=== PATIENT | female | born 1945 | race Caucasian/White ===

== ENCOUNTER → 2016-05-18 | Outpatient (CLI) | payer MEDICARE, OTHER ==
[~2016-05-18] VITALS: Ht 154.9 cm; Wt 97.5 kg
[~2016-05-18] MED LIST: LIDOCAINE 2%/EPI 1:100,000 20 ML VIAL. IJ ONE
[2016-05-18 12:40] VITALS: BP 168/75
--- NOTE | 2016-05-19 16:07 | PATHOLOGY ---
PATHOLOGY REPORT * * * * * * * * FINAL DIAGNOSIS: Breast tissue, left breast mass needle biopsies: - DUCTAL CARCINOMA IN SITU, INTERMEDIATE GRADE, CRIBRIFORM AND SOLID TYPE. SEE COMMENT. COMMENT: Sections of the left breast mass needle biopsy reveal segments of breast tissue showing extensive involvement by intermediate grade ductal carcinoma in situ of cribriform and solid type. A few of the distended ducts show central comedo-type necrosis. There are a few associated calcifications. There is no evidence of invasive carcinoma. The case is also examined by Dr. Kwasi Rob, who concurs with the diagnosis. Breast prognostic studies will be obtained on block A1, the results of which will be reported separately. (JPM:; d/t: 05/19/16) REPORT ELECTRONICALLY SIGNED BY: Demarco Pittman M.D. DATE/TIME: 05/19/2016 16:06 * * * * * * * * GROSS PATHOLOGY: Received in formalin labeled "Kenia Rodriguez, left breast," are multiple needle cores of yellow-duncan fibrofatty tissue measuring 2.4 x 2.0 x 0.2 cm in aggregate dimensions. The tissue is submitted in its entirety in cassette A1 and A2. The cold ischemic time is 5 minutes. The total formalin fixation time is 8 hours and 36 minutes. (CAA; 05/18/2016) INITIAL CPT CODE(S): A; 66221, 72822(2) Professional services performed [place] [facility] [address] Technical services performed by [facility] at [address] [place] [address], [facility] [address], [place] [address]. SPECIMEN(S) RECEIVED: A.Left breast mass CLINICAL HISTORY: Left breast mass PATIENT: KENIA RODRIGUEZ /AGE: 1001/26/1945 (Age: 71) PATIENT #: [id number] ALT CASE #: SPECIMEN COLLECTION DATE: 05/18/2016 SPECIMEN RECEIVED DATE: 05/18/2016 [facility] - [address] [place] [address] - PHONE: [phone] * * * END OF REPORT * * *
== END | disposition home or self-care (01) ==
LOC: US 12:16
PROVIDERS: ATTEND Surgery
DX: N63 Unspecified lump in breast (principal)
CPT/HCPCS: 19081; 76942; C1713; G0206; 88305; 88361; 77065

== ENCOUNTER 2016-05-27 09:06 | Day surgery (SDC) | payer MEDICARE, OTHER ==
[~2016-05-27 09:06] MED LIST changes: +FENTANYL PF 100 MCG/2 ML VIAL. IV PRN; +HYDROMORPHONE 2 MG/ML VIAL. IV PRN; +IV RINGERS,LACTATED 1000ML 1,000 ML IV SCH; +LIDOCAINE 1% 1 ML SYRINGE. ID PRN; -LIDOCAINE 2%/EPI 1:100,000 20 ML VIAL. IJ ONE; +MORPHINE SULFATE 2 MG/ML DISP.SYRIN. IV PRN; +ONDANSETRON PF 4 MG/2 ML VIAL. IV PRN; +PROCHLORPERAZINE 10 MG/2 ML VIAL. IV PRN
[2016-05-27] MEDS ORDERED: PROPOFOL 20 ML IV ONE ×2 (10:02→13:02)
[2016-05-27] MEDS ORDERED: LIDOCAINE 2% 100 MG/5 ML DISP.SYRIN. ONE (10:03)
[2016-05-27] MEDS ORDERED: DEXAMETHASONE SOD PHOS 20 MG/5 ML VIAL. ONE (10:03)
[2016-05-27] MEDS ORDERED: FENTANYL PF 100 MCG/2 ML VIAL. ONE ×2 (10:03→13:15)
[2016-05-27] MEDS ORDERED: ONDANSETRON PF 4 MG/2 ML VIAL. ONE (10:03)
[2016-05-27] MEDS ORDERED: BUPIVAC MPF-EPI 0.5%-1:200000 30 ML VIAL. ONE (12:36)
[2016-05-27] MEDS ORDERED: PHENYLEPHRINE in 0.9% NACL PF 1 MG/10 ML DISP.SYRIN. IV ONE (12:54)
[2016-05-27] MEDS ORDERED: EPHEDRINE PF IN SALINE 50 MG/5 ML DISP.SYRIN. IV ONE (13:02)
[2016-05-27] MEDS ORDERED: SEVOFLURANE 31 TO 60 MINUTES. IH ONE (13:35)
--- NOTE | 2016-05-27 13:37 | PDOC ---
BRIEF OPERATIVE NOTE Pre-Op Diagnosis DCIS excision of left breast dcis dany freeman ebl 10 ivf 400 kellie well to rr stable. NANCY PAUL MD May 27, 2016 13:37
[2016-05-27] MEDS ORDERED: ALBUTEROL SULFATE 2.5 MG/3 ML NEBU. NEB ONE (14:00)
[2016-05-27] MEDS: FENTANYL PF 100 MCG/2 ML VIAL. IV PRN ×2 (14:01→14:21)
--- NOTE | 2016-05-27 14:20 | RAD ---
Dictation specimen radiograph. Specimen radiograph was performed. Residual microcalcifications are seen scattered throughout the biopsy specimen. Biopsy clip, placed during the biopsy procedure 05/18/2016 is also included in the specimen
[2016-05-27] MEDS ORDERED: HYDR-2666 PO (14:35)
[2016-05-27] MEDS ORDERED: HYDROCODONE/APAP 5/325MG TABLET. PO ONE (14:45)
--- NOTE | 2016-05-28 01:29 | OP ---
DATE OF SURGERY: 05/27/2016 PREOPERATIVE DIAGNOSIS: Left breast ductal carcinoma in situ. POSTOPERATIVE DIAGNOSIS: Left breast ductal carcinoma in situ. PROCEDURE: Excision of left breast DCIS. SURGEON: Nancy Paul M.D. ANESTHESIA: General. ESTIMATED BLOOD LOSS: 10 mL. IV FLUIDS: 400 mL. INDICATIONS: The patient is a pleasant 71-year-old female, who presents with a breast mass. Biopsy was undertaken, which showed the DCIS, therefore, she is here for excision of DCIS. FINDINGS: The specimen mammography confirmed that the calcifications and the biopsy markers were within the specimen. DESCRIPTION OF PROCEDURE: After informed consent was obtained, the patient was taken to the operating room and placed in the supine position. After adequate induction of general anesthesia, she was prepped and draped in the usual sterile fashion. The area of anticipated incision was injected with local anesthetic. A skin incision was made around the nipple-areolar complex bilaterally. This was extended through the subcutaneous tissue with cautery. The mass was seemingly fairly superficial. Dissection was then widened around the mass with cautery. The mass was then excised. It was sent for specimen mammogram, which revealed that the biopsy marker and microcalcifications were within the specimen. The specimen had been marked with a short stitch superficial, long stitch lateral, and a medium stitch inferiorly, closest to the inframammary fold. The dissection itself was quite superficial and extended underneath the nipple-areolar complex to the nipple, and given the proximity of the mass to the skin of the breast and the nipple-areolar complex anteriorly, an additional anterior margin was taken. This meant that the dissection was such that the breast tissue was taken off of the nipple-areolar complex leaving behind the dermis within the nipple-areolar complex, as well as the tissue laterally was taken just beneath the dermis of the skin laterally, and in an attempt to minimize the chance of having a positive margin anteriorly, this anterior additional margin was taken. The wound was irrigated - it was hemostatic and was then closed in layers. The dermal-subdermal layer was closed with a 3-0 Vicryl in a running fashion, and skin was closed with 4-0 Monocryl in subcuticular fashion. Sterile dressings were placed. She tolerated the procedure well. There were no apparent complications. She was then transferred in stable condition to the recovery room. NANCY PAUL MD DR: MIRLANDE/federica JOB#: [id number] / [id number] [facility] [place] [facility] CENTERDayan
== END 2016-05-27 15:53 | disposition home or self-care (01) ==
LOC: SURG 09:06
PROVIDERS: ATTEND Surgery
DX: D05.12 Intraductal carcinoma in situ of left breast (principal); E66.9 Obesity, unspecified; Z90.710 Acquired absence of both cervix and uterus; Z90.49 Acquired absence of other specified parts of digestive tract; Z98.41 Cataract extraction status, right eye
CPT/HCPCS: 19301; 76098; 94640; J0780; J1100; J1956; J2370; J2405; J2704; J3010; J3490

== ENCOUNTER 2016-06-10 06:36 | Day surgery (SDC) | payer MEDICARE, OTHER ==
[~2016-06-10] VITALS: Ht 154.9 cm; Wt 97.1 kg
[~2016-06-10 06:36] MED LIST changes: -FENTANYL PF 100 MCG/2 ML VIAL. IV PRN; +HYDR-2666 PO; -HYDROMORPHONE 2 MG/ML VIAL. IV PRN; -IV RINGERS,LACTATED 1000ML 1,000 ML IV SCH; -LIDOCAINE 1% 1 ML SYRINGE. ID PRN; -MORPHINE SULFATE 2 MG/ML DISP.SYRIN. IV PRN; -ONDANSETRON PF 4 MG/2 ML VIAL. IV PRN; -PROCHLORPERAZINE 10 MG/2 ML VIAL. IV PRN
[2016-06-10] MEDS ORDERED: HYDROMORPHONE 2 MG/ML VIAL. IV PRN (07:00)
[2016-06-10] MEDS ORDERED: LIDOCAINE 1% 1 ML SYRINGE. ID PRN (07:00)
[2016-06-10] MEDS ORDERED: ONDANSETRON PF 4 MG/2 ML VIAL. IV PRN (07:00)
[2016-06-10] MEDS ORDERED: FENTANYL PF 100 MCG/2 ML VIAL. IV PRN ×2 (07:00)
[2016-06-10] MEDS ORDERED: PROCHLORPERAZINE 10 MG/2 ML VIAL. IV PRN (07:00)
[2016-06-10] MEDS ORDERED: IV RINGERS,LACTATED 1000ML 1,000 ML IV SCH (07:00)
[2016-06-10] MEDS ORDERED: BUPIVAC MPF-EPI 0.5%-1:200000 30 ML VIAL. ONE (07:40)
[2016-06-10] MEDS ORDERED: DESFLURANE 61 TO 120 MINUTES IH ONE (07:46)
[2016-06-10] MEDS ORDERED: MIDAZOLAM HCL 2 MG/2 ML VIAL. ONE ×2 (07:48→07:49)
[2016-06-10] MEDS ORDERED: DEXAMETHASONE SOD PHOS 20 MG/5 ML VIAL. ONE (07:49)
[2016-06-10] MEDS ORDERED: LIDOCAINE 2% 100 MG/5 ML DISP.SYRIN. ONE (07:49)
[2016-06-10] MEDS ORDERED: PROPOFOL 20 ML IV ONE ×2 (07:49→08:50)
[2016-06-10] MEDS ORDERED: FENTANYL PF 100 MCG/2 ML VIAL. ONE ×2 (07:49→08:50)
[2016-06-10] MEDS ORDERED: ONDANSETRON PF 4 MG/2 ML VIAL. ONE (07:49)
[2016-06-10] MEDS ORDERED: EPHEDRINE PF IN SALINE 50 MG/5 ML DISP.SYRIN. IV ONE (08:40)
[2016-06-10] MEDS ORDERED: NEOSTIGMINE METHYLSULFATE 5 MG/5 ML SYRINGE. ONE (08:47)
[2016-06-10] MEDS: MORPHINE SULFATE 2 MG/ML DISP.SYRIN. IV PRN ×2 (09:56→10:09)
--- NOTE | 2016-06-10 09:57 | PDOC ---
BRIEF OPERATIVE NOTE Pre-Op Diagnosis left dcis reexcision left dcis k haja sanford ebl 25 ivf 1300 kellie well to rr stable #[id number] NANCY PAUL MD Jun 10, 2016 09:57
[2016-06-10] MEDS ORDERED: HYDROCODONE/APAP 5/325MG TABLET. PO ONE (10:15)
[2016-06-10 12:12] VITALS: BP 123/63
--- NOTE | 2016-06-10 13:49 | OP ---
DATE OF SURGERY: 06/10/2016 PREOPERATIVE DIAGNOSIS: Left breast ductal carcinoma in situ. POSTOPERATIVE DIAGNOSIS: Left breast ductal carcinoma in situ. PROCEDURE: Reexcision of left breast DCIS. SURGEON: Nancy Paul M.D. ANESTHESIA: General. ESTIMATED BLOOD LOSS: 25 mL. IV FLUIDS: 1300 mL. INDICATIONS: The patient is a 71-year-old female who underwent excision of left breast DCIS. She has a positive lateral margin and then the interior margin of the primary specimen was negative, but due to the conditions intraoperatively additional anterior margin was taken and this demonstrated DCIS. This anterior margin was just under the nipple areolar complex. She is here today for reexcision. FINDINGS: She did have several millimeters thickness of tissue that was able to be excised from the dermis of the nipple areolar complex and therefore the nipple areolar complex itself was spared and the entire biopsy cavity was excised with generous margin circumferentially. It was marked with a short stitch superficial just under the nipple areolar complex. A medium stitch was used to hold the biopsy cavity close and this stitch would have been at the lateral margin of the left areolar, where the areolar joint skin and then the long stitch was lateral. The pathologist was asked to come to the room and I showed him how I oriented the specimen as well. DESCRIPTION OF PROCEDURE: After informed consent was obtained, the patient was taken to the operating room and placed in supine position. After adequate induction of general anesthesia, she was prepped and draped in usual sterile fashion. Her previous skin incision was opened with a scalpel and it has enlarged slightly and then the thickness of the tissue underlying the nipple areolar complex was examined and it seems reasonable to excise this closer to the dermis of the nipple areolar complex ____ interrupted instead the resecting and nipple areolar complex. Therefore, dissection was then began at the lateral margin of the areolar and extended across the entire areolar right at the level of the dermis with cautery. The dissection was then widened circumferentially in all directions until the entire biopsy cavity was excised as one specimen. The specimen was marked as stated. The breast was irrigated and hemostasis was obtained. The wound was then closed in layers. The deep layer was closed with a 3-0 Vicryl in a running fashion. Skin was closed with 4-0 Monocryl in subcuticular fashion. Sterile dressings were placed. She tolerated the procedure well. There were no apparent complications. She was then transferred in stable condition to the recovery room. NANCY PAUL MD DR: MIRLANDE/federica JOB#: [id number] / [id number] SANJIV Magaña MD
--- NOTE | 2016-06-11 00:11 | ACF ---
Admission Forms Criteria AMBULATORY SURGERY EXCEPTION CRITERIA Ambulatory Surgery Exception Criteria ( Place 'X' for any and all applicable criteria): Surgery or procedure performed on ambulatory basis may require inpatient stay for[A] ANY ONE of the following(1)(2)(3)(4)(5)(6)(7)(8)(9): [X] I. A preoperative situation, condition, or finding that warrants inpatient stay as indicated by ANY ONE of the following: [] a) Inpatient care needed because of severity of a disease or condition rather than the surgery (eg, severe cardiac or respiratory disease, severe infection) (15) (16 ) (17) (18) [] b) Emergent procedure (eg, angioplasty for acute ischemia)(19) [X] c) Complex surgical approach or situation as indicated by ANY ONE of the following(3): [X] i) Open approach needed instead of usual endoscopic, transcatheter, or other less invasive procedure [] ii) Difficult approach because of previous operation [] iii) Airway monitoring required after open neck procedures(20)(21 ) [] iv) Large mass requiring unusually extensive dissection [] v) Additional complicating feature requiring inpatient care (eg , drain management)(22(23): [] d) Major surgery in a pt with high anesthetic risk as indicated by ANY ONE of the following (2)(3)(5)(7)(8): [] i) ASA risk class III or higher (severe systemic disease impairing function) [D] [] ii) Advanced age (eg, older than 85 years)(14)(24) [] iii) Symptomatic heart failure(25) [] iv) Symptomatic asthma or COPD(8)(21) [] v) Morbid obesity with hemodynamic or respiratory problems(20)( 21)(26)(27) [] vi) Obstructive sleep apnea(20)(21) [] vii) Former premature infants who are younger than 60 weeks [] viii) High risk for severe postoperative abnormalities (eg, severe postoperative hypocalcemia after parathyroidectomy for severe hyperparathyroidism)(27)( 28) [] ix) Unstable angina(25) [] e) Drug-related risk requiring inpatient stay as indicated by ANY ONE of the following(5)(10)(14)(32)(33) [] i) Procedure requires discontinuing drugs or other therapy (eg , antiarrhythmic medication, antiseizure medication), which necessitates inpatient observation or treatment.(18)(31) [] ii) Major surgery and high risk drug use as indicated by ANY ONE of the following: [] 1) Active abuse of cocaine or similar drug [] 2) Monoamine oxidase inhibitor use [] 3) Other drug identified as posing risk [] f) Inadequate outpatient care situation as indicated by ANY ONE of the following(5)(10)(14)(32)(33) [] i) Patient lives remote from medical facility and procedure has urgent complication potential, and temporary nearby residence cannot be arranged [] ii) Patient will have postprocedure incapacitation and inadequate assistance at home, or alternative level of care cannot be arranged. [] iii) Patient will have long general anesthesia or procedure side effect resolution time, and competent person to stay with patient on first postoperative night at home or alternative level of care cannot be arranged. [] iv) Other inadequate outpatient situation that cannot be handled by other means [] II. A perioperative event, condition, or finding that warrants inpatient stay as indicated by ANY ONE of the following (1)(2)(3): [] a) Inadequate physiologic recovery: cardiovascular, respiratory, or hemodynamic status not normal or near preoperative baseline(18) [] b) Hemodynamic instability [] c) Patient not alert with near normal or baseline mental status [] d) Temperature not normal or as expected and not appropriate for outpatient treatment of condition [] e) Ambulatory or appropriate activity level status not yet achieved post procedure [E](34)(35)(36) [] f) Operative site not appropriate (eg, unexpected or excessive drainage or bleeding) [] g) Postoperative effects not resolved or adequately managed (eg, significant pain or vomiting not appropriate for outpatient or next level of care)(10)(12) [] h) Complicating features requiring inpatient care as indicated by ANY ONE of the following(37): [] i) Severe complications of procedure (eg, bowel injury, airway compromise, vascular injury,severe hemorrhage) [] ii) Extensive (eg, dissection far beyond usual scope of procedure ) or prolonged (eg, 120 minutes beyond usual) surgery needed requiring inpatient postoperative care [] iii) Conversion to an open or complex procedure that requires inpatient care (eg, open vs laparoscopic cholecystectomy, abdominal vs vaginal hysterectomy)(38) [] iv) Comorbid condition or test result identified during or post procedure that requires inpatient care (7) [] v) Malignant hyperthermia(30) [] vi) Other complicating feature requiring inpatient care(22)(23) Inpatient stay may be needed until ALL of the following are present (1)(2)(3)(4) (5)(6)(10)(14)(33)(40): []a) Physiologic recovery: cardiovascular, respiratory, and hemodynamic status normal or near preoperative baseline []b) Hemodynamic stability []c) Patient alert, with near normal or baseline mental status []d) Temperature appropriate: patient afebrile or temperature appropriate for outpt treatment of condition []e) Activity level appropriate: ambulatory or appropriate activity level post procedure []f) Operative site appropriate as indicated by ALL of the following: []i) Site dry or with expected drainage []ii) Any blood noted is as expected for procedure. []g) Postoperative effects resolved or managed as indicated by ALL of the following: []i) Pain management appropriate for outpatient (or next level of) care(10) []ii) Minimal nausea and vomiting: if present, successfully treated with oral medication(12) []iii) Headache, dizziness, or drowsiness (if present) are mild. []h) Voiding status acceptable as indicated by ANY ONE of the following: []i) Voiding spontaneously []ii) No voiding but instructions given for follow-up in 6 to 8 hours []iii) Urinary catheter in place, and instructions given for follow-up []i) Complicating features requiring inpatient care manageable at a lower level of care(37) []j) Comorbid conditions manageable at a lower level of care(37) The original [employer] content created by [employer] has been revised. The portions of the content which have been revised are identified through the use of italic text or in bold, and [employer] has neither reviewed nor approved the modified material. All other unmodified content is copyright [employer]. Please see references footnoted in the original [employer] edition 2016 Admission Criteria Met?: Yes LUIS E MACKENZIE Jun 11, 2016 00:11
--- NOTE | 2016-06-15 13:30 | PATHOLOGY ---
PATHOLOGY REPORT * * * * * * * * FINAL DIAGNOSIS: Breast tissue, left breast segmental mastectomy: - FOCAL RESIDUAL DUCTAL CARCINOMA IN-SITU, INTERMEDIATE GRADE, CRIBRIFORM AND SOLID TYPE, IS IDENTIFIED WITHIN ANTERIOR WALL OF PREVIOUS BIOPSY SITE. - DCIS IS APPROXIMATELY 1 MM FROM THE CLOSEST INKED ANTERIOR SUBAREOLAR MARGIN OF RESECTION. - Remaining margins negative for DCIS. - Previous biopsy site showing focal coagulative necrosis, fat necrosis, acute and chronic inflammation with eosinophils, fibrosis, and focal foreign body giant cell reaction. - Proliferative fibrocystic changes with florid ductal epithelial hyperplasia and small intraductal papilloma. (JPM:csd; d/t: 06/12/2016) REPORT ELECTRONICALLY SIGNED BY: Demarco Pittman M.D. DATE/TIME: 06/15/2016 13:29 * * * * * * * * GROSS PATHOLOGY: The specimen is received in formalin labeled "Kenia Rodriguez, left breast tissue". Received is a 286 g segment of yellow-boyce lobulated tissue oriented with a short suture designating the superficial/anterior margin, a long suture designating the lateral margin, and a medium suture designating the lateral edge of the nipple areolar complex. There is an additional suture present which is holding the previous biopsy cavity closed. Between the short and medium sutures, the tissue has a light brown and granular appearance, measuring 4.5 x 2.2 cm. This area is designated as the margin directly below the nipple areola complex. The specimen measures 13.5 cm from superior to inferior, 9.1 cm from medial to lateral, and 5.8 cm from superficial/anterior to deep/posterior. The specimen is inked as follows: Superior-blue, inferior-green, lateral-red, medial-yellow, superficial/anterior-black, deep/posterior-orange. Sectioning reveals a previous biopsy cavity measuring 8.9 x 6.8 x 3.0 cm. This cavity opens to the superficial/anterior margin, 0.5 cm from the deep/posterior margin, 1.5 cm from the superior margin, 2.0 cm from the inferior margin, 0.7 cm from the lateral margin, and 0.7 cm from the medial margin. There is a focus of white-boyce fibrous tissue between the previous biopsy cavity and the superficial/anterior margin measuring approximately 1.5 x 1.1 x 0.6 cm, which is 0.5 cm from the superficial/anterior and medial margins. There is a second focus of white-boyce fibrous tissue which is located along the deep/posterior aspect of the previous biopsy cavity measuring 1.0 x 1.0 x 0.7 cm, which is 1.0 cm from the deep/posterior margin. The remainder the specimen is comprised of yellow-boyce lobulated tissue. Residual tumor is not grossly distinct. The specimen is submitted representatively as follows: A1-A5 entire light brown granular area directly below nipple areola complex A6 most superior margin A7 most inferior margin A8 hostess party sales representative section showing relationship of previous biopsy cavity to posterior and medial margins A9 hostess party sales representative section showing relationship of previous biopsy cavity to lateral margin A10-A14 entire primary focus of fibrous tissue between previous biopsy cavity and superficial/anterior margin A15-A18 entire secondary focus of fibrous tissue between previous biopsy cavity and deep/posterior margin. The cold ischemic time is 13 minutes. The total formalin fixation time is 36 hours and 26 minutes. (CAA; 06/11/2016) INITIAL CPT CODE(S): A; 13342 Professional services performed by [facility] [place] [address] Technical services performed by [facility] at [address] [place] [address] [address], [place] [address]. SPECIMEN(S) RECEIVED: A.Left breast tissue CLINICAL HISTORY: Left breast carcinoma in situ nipple and areola PATIENT: KENIA RODRIGUEZ /AGE: 1001/26/1945 (Age: 71) PATIENT #: [id number] ALT CASE #: SPECIMEN COLLECTION DATE: 06/10/2016 SPECIMEN RECEIVED DATE: 06/10/2016 [facility] - [address] [place] [address] - PHONE: [phone] * * * END OF REPORT * * *
== END 2016-06-10 12:30 | disposition home or self-care (01) ==
LOC: SURG 06:36
PROVIDERS: ATTEND Surgery
DX: C50.012 Malignant neoplasm of nipple and areola, left female breast (principal); D05.12 Intraductal carcinoma in situ of left breast; K82.9 Disease of gallbladder, unspecified; Z90.49 Acquired absence of other specified parts of digestive tract; E66.9 Obesity, unspecified; Z90.710 Acquired absence of both cervix and uterus
CPT/HCPCS: 19301; C1769; J0780; J1100; J1956; J2250; J2270; J2405; J2704; J2710; J3010; J3490

== ENCOUNTER → 2016-08-31 | Outpatient (CLI) | payer MEDICARE, OTHER ==
[~2016-08-31] MED LIST changes: +ASPI-482 PO; +CYAN10005 PO; +GABA-586 PO; +LEVO112T4 PO; +POTA10TA12 PO; +PRAV20TA2 PO; +TAMO20TA PO; +TRIA1TAB5 PO; +VENTOLIN HFA18 GM INH
--- NOTE | 2016-08-31 11:35 | RAD ---
Indication lumpectomy 2 months previously. Swelling. Targeted ultrasound was performed. Examination was targeted to the retroareolar area of the left breast. There is a complex, multiseptated, predominantly cystic mass in the subareolar position of the left breast. It measures approximately 8 x 6.3 x 3 cm. It would be compatible with a complex cyst,, multiseptated hematoma or conceivably abscess. IMPRESSION: Complex, multiseptated, 8 cm subareolar mass left breast. Sterility uncertain.
== END | disposition home or self-care (01) ==
LOC: US 10:13
PROVIDERS: ATTEND Radiology Radiation Oncology
DX: N63 Unspecified lump in breast (principal); Z85.3 Personal history of malignant neoplasm of breast
CPT/HCPCS: 76641; 99211

== ENCOUNTER 2016-09-04 10:28 | Day surgery (SDC) | payer MEDICARE, OTHER ==
[~2016-09-04] VITALS: Ht 154.9 cm; Wt 97.1 kg
[~2016-09-04 10:28] MED LIST changes: +CLINDAMYCIN 600MG PREMIX 50 ML IV PRN; -HYDR-2666 PO; +HYDR-2758 PO; +HYDROmorphone 2 MG/ML VIAL IV PRN; +LIDOCAINE 1% 1 ML SYRINGE. ID PRN; +ONDANSETRON PF 4 MG/2 ML VIAL. IV PRN; +PROCHLORPERAZINE 10 MG/2 ML VIAL. IV PRN; +fentaNYL PF VIAL 100 MCG/2 ML VIAL IV PRN
[2016-09-04] MEDS: IV RINGERS,LACTATED 1000ML 1,000 ML IV SCH ×2 (11:08→11:10)
[2016-09-04] MEDS ORDERED: fentaNYL PF VIAL 100 MCG/2 ML VIAL ONE (11:54)
[2016-09-04] MEDS ORDERED: ROCURONIUM 50 MG/5 ML VIAL. ONE (11:54)
[2016-09-04] MEDS ORDERED: MIDAZOLAM HCL/PF 2 MG/2 ML VIAL. ONE (11:54)
[2016-09-04] MEDS ORDERED: FAMOTIDINE 20 MG/2 ML VIAL ONE (11:56)
[2016-09-04] MEDS ORDERED: ONDANSETRON PF 4 MG/2 ML VIAL. ONE (11:56)
[2016-09-04] MEDS ORDERED: PROPOFOL 20 ML IV ONE (11:56)
[2016-09-04] MEDS ORDERED: DEXAMETHASONE SOD PHOS 20 MG/5 ML VIAL. ONE (11:56)
[2016-09-04] MEDS ORDERED: LIDOCAINE 2% PF Vial for OR 5 ML VIAL. ONE (11:56)
[2016-09-04] MEDS ORDERED: HYDR-971 PO (13:02)
[2016-09-04] MEDS ORDERED: BUPIVAC MPF-EPI 0.5%-1:200000 30 ML VIAL. ONE (13:22)
[2016-09-04] MEDS ORDERED: NEOSTIGMINE METHYLSULFATE 5 MG/5 ML SYRINGE. ONE (14:07)
[2016-09-04] MEDS ORDERED: GLYCOPYRROLATE 1 MG/5 ML VIAL. ONE (14:07)
[2016-09-04] MEDS ORDERED: SEVOFLURANE 61 TO 120 MINUTES. IH ONE (14:14)
--- NOTE | 2016-09-04 14:19 | PDOC ---
BRIEF OPERATIVE NOTE Pre-Op Diagnosis #[id number] left breast seroma left breast excision seroma/NAC (left partial mastectomy) gen ebl 25 ivf 700 kellie well to rr stable. NANCY PAUL MD Sep 04, 2016 14:19
[2016-09-04] MEDS ORDERED: HYDROcodone/APAP 5/325MG 1 TAB TABLET PO ONE (14:45)
[2016-09-04] MEDS: fentaNYL PF VIAL 100 MCG/2 ML VIAL IV PRN ×2 (14:57→15:20)
[2016-09-04] MEDS: MORPHINE SULFATE 2 MG/ML DISP.SYRIN. IV PRN ×2 (15:02→15:49)
[2016-09-04 16:45] VITALS: BP 141/67
--- NOTE | 2016-09-07 10:00 | OP ---
DATE OF SURGERY: 09/04/2016 PREOPERATIVE DIAGNOSIS: Left breast seroma. POSTOPERATIVE DIAGNOSIS: Left breast seroma. PROCEDURE: Excision of left breast seroma, nipple areolar complex (left partial mastectomy). SURGEON: Nancy Paul M.D. ANESTHESIA: General. ESTIMATED BLOOD LOSS: 25 mL. IV FLUIDS: 700 mL. INDICATIONS: The patient is a 71-year-old female who is status post left breast excision DCIS and status post radiation postoperatively for DCIS. She has had a seroma that has been draining for weeks and has not improving. Ultrasound revealed a multiseptated 8 x 6 seroma that was not amenable to percutaneous drainage. She is here today for excision of the seroma cavity, excision of the nipple areolar complex, and to hopefully alleviate her seroma cavity definitively. DESCRIPTION OF PROCEDURE: After informed consent was obtained, the patient was taken to the operating room and placed in supine position. After adequate induction of general anesthesia, she was prepped and draped in usual sterile fashion. An elliptical incision was made around the nipple areolar complex extended through the dermis with cautery. The dermis was thickened likely because of postoperative changes. The seroma cavity was encountered. It was drained. It was multiseptated, it was large. The seroma cavity itself was excised with cautery and the specimen was marked with the long stitch lateral. It was sent to Pathology for examination. She had some larger vessels that were oversewn to control bleeding during the resection. At this point, the area was made hemostatic with cautery as well, suture ligation. The partial mastectomy site was hemostatic. A drain was then placed and brought out through a separate stab wound in the left lateral breast, sutured to the skin with a 2-0 Prolene suture. The cavity was irrigated. It was hemostatic. The wound was closed in layers and subdermal layer was closed with a 3-0 Vicryl in a running fashion. Skin was closed with 4-0 Monocryl in subcuticular fashion. Sterile dressings were placed, which consisted of skin effects followed by Steri-Strips and a small drained sponge. She tolerated the procedure well. There were no apparent complications. She is in the process of being transferred in stable condition to the recovery room. NANCY PAUL MD DR: MIRLANDE/federica JOB#: [id number] / [id number] [facility] [place] VINAY MD ROBINOW, JAY MD TAYLOR, GILDARDO [facility]ITALDayan
--- NOTE | 2016-09-07 18:14 | PATHOLOGY ---
PATHOLOGY REPORT * * * * * * * * FINAL DIAGNOSIS: Skin and breast tissue, left breast seroma and nipple areolar complex excision: - Seroma of previous lumpectomy site with organizing fibrin and focal squamous metaplasia of seroma lining, and with wall of lumpectomy site showing reactive fibrosis, fat necrosis, acute and chronic inflammation, and foreign body giant cell reaction. - No residual ductal carcinoma in situ identified. - Inked margins of resection negative for DCIS. - Focal mild duct ectasia and fibrosis of breast tissue surrounding lumpectomy site. (JPM:mml; d/t: 09/07/2016) REPORT ELECTRONICALLY SIGNED BY: Demarco Pittman M.D. DATE/TIME: 09/07/2016 18:13 * * * * * * * * GROSS PATHOLOGY: The specimen is received in formalin labeled "Kenia Rodriguez, seroma and nipple and areola complex left breast, long stitch lateral". Received is a 71 g segment of yellow-boyce fibroadipose tissue with attached skin measuring 7.8 cm from medial to lateral, 5.9 cm from superior to inferior, and 5.5 cm from anterior to posterior. The attached skin measures 4.3 x 3.9 cm. The specimen is inked as follows: Superior-blue, inferior-green, lateral-red, medial-yellow, anterior-black, posterior-orange. The anterior aspect of the specimen opened into a previous biopsy cavity measuring 6.5 x 5.5 x 4.1 cm. The lining of the cavity is pink-boyce in appearance with a moderate amount of possible adhesions present. Masses or lesions are not grossly identified. The specimen is submitted representatively as follows: A1 medical collections representative section of skin A2 medical collections representative sections of previous biopsy cavity and adjacent medial margin A3-A4 medical collections representative sections of previous biopsy cavity and adjacent superior margin A5 medical collections representative section of previous biopsy cavity and adjacent lateral margin A6 medical collections representative sections of previous biopsy cavity and adjacent posterior margin A7 medical collections representative section of previous biopsy cavity and adjacent inferior margin A8 medical collections representative sections of previous biopsy cavity and adjacent anterior margin. The cold ischemic time and time in formalin are not provided. The time out of formalin is 9:50 PM on 09/06/2016. (CAA; 09/06/2016) INITIAL CPT CODE(S): A; 03203 Professional services performed by [facility] at [address] [address] Technical services performed by [facility] at [address] [place] [address], [address], [place] [address]. SPECIMEN(S) RECEIVED: A.Left breast seroma and nipple areolar complex CLINICAL HISTORY: Seroma of breast PATIENT: KENIA RODRIGUEZ /AGE: 1001/26/1945 (Age: 71) PATIENT #: [id number] ALT CASE #: SPECIMEN COLLECTION DATE: 09/04/2016 SPECIMEN RECEIVED DATE: 09/04/2016 [facility] - [address] [place] [address] - PHONE: [phone] * * * END OF REPORT * * *
== END 2016-09-04 17:07 | disposition home or self-care (01) ==
LOC: SURG 10:28
PROVIDERS: ATTEND Surgery
DX: L76.34 Postprocedural seroma of skin and subcutaneous tissue following other procedure (principal); Y83.8 Other surgical procedures as the cause of abnormal reaction of the patient, or of later complication, without mention of misadventure at the time of the procedure; Z98.41 Cataract extraction status, right eye; Z90.49 Acquired absence of other specified parts of digestive tract; E66.9 Obesity, unspecified; Z90.710 Acquired absence of both cervix and uterus; Z85.3 Personal history of malignant neoplasm of breast; Z88.0 Allergy status to penicillin; Z88.2 Allergy status to sulfonamides; Z91.048 Other nonmedicinal substance allergy status
CPT/HCPCS: 21501; J1100; J2250; J2270; J2405; J2704; J2710; J3010; J3490; S0028; 88307

== ENCOUNTER → 2016-12-11 | Outpatient (CLI) | payer MEDICARE, OTHER ==
[~2016-12-11] MED LIST changes: -CLINDAMYCIN 600MG PREMIX 50 ML IV PRN; +HYDR-971 PO; -HYDROmorphone 2 MG/ML VIAL IV PRN; -LIDOCAINE 1% 1 ML SYRINGE. ID PRN; -ONDANSETRON PF 4 MG/2 ML VIAL. IV PRN; -PROCHLORPERAZINE 10 MG/2 ML VIAL. IV PRN; -fentaNYL PF VIAL 100 MCG/2 ML VIAL IV PRN
--- NOTE | 2016-12-11 12:47 | RAD ---
DATE: 12/11/2016 EXAM: DIGITAL DIAGNOSTIC LT HISTORY: Follow-up. History of DCIS. History of lumpectomy and radiation therapy. COMPARISON: Note is made of the screening examination 05/04/2016. This study was interpreted with the benefit of Computerized Aided Detection (CAD). FINDINGS: Breast Density: SCATTERED The breast parenchyma shows scattered fibroglandular densities. Breast parenchyma level B. Post therapeutic changes are noted in the left breast. There is no evidence of tumor recurrence. Lymph node is noted in the left axilla similar to the study 05/04/2016. IMPRESSION: Benign findings. BI-RADS CATEGORY: 2 BENIGN FINDING(S) RECOMMENDED FOLLOW-UP: 6M 6 MONTH FOLLOW-UP PQRS compliance statement: Patient information was entered into a reminder system with a target due date April, for the next mammogram. Mammography is a sensitive method for finding small breast cancers, but it does not detect them all and is not a substitute for careful clinical examination. A negative mammogram does not negate a clinically suspicious finding and should not result in delay in biopsying a clinically suspicious abnormality. "Our facility is accredited by the [employer] Mammography Program."
== END | disposition home or self-care (01) ==
LOC: MAMMO 12:16
PROVIDERS: ATTEND Surgery
DX: D05.12 Intraductal carcinoma in situ of left breast (principal)
CPT/HCPCS: G0206; 77065

== ENCOUNTER → 2017-05-14 | Outpatient (CLI) | payer MEDICARE, OTHER | END | disposition home or self-care (01) | LOC: MAMMO 12:37 | DX: C50.912 Malignant neoplasm of unspecified site of left female breast (principal); Z92.3 Personal history of irradiation | CPT/HCPCS: 77066 ==

== ENCOUNTER → 2017-11-25 | Outpatient (CLI) | payer MEDICARE, OTHER ==
[2017-11-26] MEDS: REGADENOSON 0.4 MG/5 ML DISP.SYRIN. IV ONE (09:15)
--- NOTE | 2017-11-26 11:50 | RAD ---
MR#: [id number] Date of Study: 11/26/2017 Ordering Physician: JARON CHOW, Referring Physician: ALFA CHRISTINA Tech: KRYSTIAN Vasques, ARRT (R) (N) APPROVED REPORT Test Type: Pharmacological Stress Nurse/Tech: Sana Block RN Test Indications: Dyspnea on exertion Cardiac History: Hypertension,asthma,, High cholesterol Medications: See Electronic Medical Record Medical History: See Electronic Medical Record Resting ECG: SR with BBB Resting Heart Rate: 85 bpm Resting Blood Pressure: 140/71mmHg Pretest Chest Pain: None Nurse/Tech Notes S1,S2. Left lower lobe sounds diminished. Consent: The procedure was explained to the patient in lay terms. Informed consent was witnessed. Matt eout was entered into [employer]. History and Stress Test performed by RT Loan (R) (N) Pharm. Details Pharmacologic stress testing was performed using 0.4mg per 5ml of regadenoson given intravenously ove r 7-10 seconds. Stress Symptoms Headache, hot flash sensation POST EXERCISE Reason for Termination: Infusion complete Target HR: No Max HR: 97 bpm Max Blood Pressure: 128/60mmHg Blood Pressure response to exercise: Abnormal blood pressure response during stress. Heart Rate response to exercise: WNL Chest Pain: No. Arrhythmia: No. ST Change: No. INTERPRETATION Stress EKG Conclusion: Baseline EKG showed sinus rhythm. No ischemic changes at peak stress. No arr hythmias. Imaging Protocol IMAGE PROTOCOL: Rest Tc-99m/stress Tc-99m 2 days Rest: Stress: Viability: Radiopharm.Tc99m WzlfvlduhHu12x Sestamibi Ocqo69gWj 33.4mCi Img Date 11/25/2017 11/26/2017 Inj-Img Fgvi33sfg. 60min. Rest Admin Site:IV - Right HandAdministrator:KRYSTIAN Vasques, ARRT (R)(N) Stress Admin Site: IV - Right HandAdministrator: KRYSTIAN Vasques ARRT (R)(N) STRESS DATA End Diast. Vol.52.0mlAv. Heart Rate95.0bpm LVEDV index BSA26.0mlCardiac Output0.0L/min End Syst. Vol.9.0mlCO Index BSA0.0L/min LVESV index BSA5.0mlMyocardial Mass95.0g Eject. Rmcwdgmp00.0% Stress Scores Regional WT1.00Summed WT5.00 Regional WM0.00Summed WM0.00 LV Perfusion Scintigraphic images did not show any significant perfusion defects but there was transient ischemic dilation 1.45 suggestive of balanced ischemia. Wall Motion Normal left ventricle systolic function with ejection fraction calculated at 76%. LV Perf. Quant 17 Seg. SSS0.00 17 Seg. SRS0.00 17 Seg. SDS0.00 Stress Defect Extent (% LAD)0.00Rest Defect Extent (% LAD)0.00Rev. Defect Extent (% LAD)0.00 Stress Defect Extent (% LCX) 0.00Rest Defect Extent (% LCX)0.00Rev. Defect Extent (% LCX)0.00 Stress Defect Extent (% RCA)0.00Rest Defect Extent (% RCA)0.00Rev. Defect Extent (% RCA)0.00 Stress Defect Extent (% RANDA)0.00Rest Defect Extent (% RANDA)0.00Rev. Defect Extent (% RANDA)0.00 Conclusion 1. Regadenoson cardioisotope stress test did not show any significant fixed or reversible perfusion d efects but there was transient ischemic dilatation suggestive of balanced ischemia. 2. Normal left ventricular systolic function with ejection fraction calculated at 76%. 3. Consider cardiac catheterization if clinical suspicion high. Signed by : Jaron Chow, Electronically Approved : 11/26/2017 11:49:37
--- NOTE | 2017-11-26 12:02 | CARD ---
MR#: [id number] Date of Study: 11/26/2017 Ordering Physician: JARON CHOW, Referring Physician: JARON CHOW Tech: Silvia Jose RDCS APPROVED REPORT EXAM: Two-dimensional and M-mode echocardiogram with Doppler and color Doppler. Other Information Quality : Fair INDICATION Dyspnea 2D DIMENSIONS RVDd2.0 (2.9-3.5cm)Left Atrium(2D)2.8 (1.6-4.0cm) IVSd1.3 (0.7-1.1cm)Aortic Root(2D)3.3 (2.0-3.7cm) LVDd3.1 (3.9-5.9cm)LVOT Diameter2.0 (1.8-2.4cm) PWd1.0 (0.7-1.1cm)LVDs2.4 (2.5-4.0cm) FS (%) 27.0 %SV17.4 ml LVEF(%)55.0 (>50%) Aortic Valve AoV Peak Jonatan.165.3cm/sAoV VTI27.4cm AO Peak GR.10.9mmHgLVOT Peak Jonatan.142.2cm/s AO Mean GR.7mmHgAVA (VMAX)2.71cm2 FRANCO (VTI)3.57hs8YY P 1/2 Zqvf046yd Mitral Valve MV E Gsqbnpeb66.5cm/sMV DECEL HECF858jz MV A Pqqestdf123.0cm/sE/A Ratio0.6 Pulmonary Vein S1 Shlyyzsp77.9cm/sD2 Ohsyhoed09.4cm/s LEFT VENTRICLE The left ventricle is normal size. There is mild asymmetric posterior wall hypertrophy. Left ventricl e systolic function is normal. The Ejection Fraction is 55-60%. There is normal LV segmental wall mot ion. Transmitral Doppler flow pattern is Grade I-abnormal relaxation pattern. RIGHT VENTRICLE The right ventricle is normal size. The right ventricular systolic function is normal. ATRIA The left atrium size is normal. The right atrium size is normal. The interatrial septum is intact wit h no evidence for an atrial septal defect or patent foramen ovale as noted on 2-D or Doppler imaging. AORTIC VALVE The aortic valve is not well visualized. Doppler and Color Flow revealed mild aortic regurgitation. T here is no significant aortic valvular stenosis. MITRAL VALVE The mitral valve is calcified but opens well. There is no evidence of mitral valve prolapse. There is no mitral valve stenosis. Doppler and Color Flow revealed no mitral valve regurgitation noted. TRICUSPID VALVE The tricuspid valve is normal in structure and function. Doppler and Color Flow revealed no tricuspid valve regurgitation noted. There is no tricuspid valve stenosis. PULMONIC VALVE The pulmonic valve is not well visualized. Doppler and Color Flow revealed no pulmonic valvular regur gitation. There is no pulmonic valvular stenosis. GREAT VESSELS The aortic root is normal in size. The ascending aorta is mildly dilated at 3.5 cm. The IVC was not v isualized. PERICARDIAL EFFUSION There is no evidence of significant pericardial effusion. Critical Notification Critical Value: No <Conclusion> Left ventricle systolic function is normal. The Ejection Fraction is 55-60%. There is normal LV segmental wall motion. Transmitral Doppler flow pattern is Grade I-abnormal relaxation pattern. Doppler and Color Flow revealed mild aortic regurgitation. There is no evidence of significant pericardial effusion. Signed by : Jaron Chow, Electronically Approved : 11/26/2017 12:01:43
== END | disposition home or self-care (01) ==
LOC: NM 16:17
PROVIDERS: ATTEND Internal Medicine Cardiovascular Disease
DX: I35.1 Nonrheumatic aortic (valve) insufficiency (principal); E66.9 Obesity, unspecified; Z85.3 Personal history of malignant neoplasm of breast; Z92.3 Personal history of irradiation; Z90.49 Acquired absence of other specified parts of digestive tract; Z90.710 Acquired absence of both cervix and uterus; Z88.2 Allergy status to sulfonamides; Z88.0 Allergy status to penicillin
CPT/HCPCS: 78452; 96374; 96375; A9500; 93017; 93306; 96376; J2785

== ENCOUNTER 2017-12-10 08:14 | Outpatient (CLI) | payer MEDICARE, OTHER ==
[~2017-12-10] VITALS: Ht 152.4 cm; Wt 101.6 kg
[2017-12-10] VITALS (10 sets, daily range): BP systolic 140–176; BP diastolic 64–94
[~2017-12-10 08:14] MED LIST changes: +IODIXANOL 320 MG/ML 100 ML VIAL. ONE; +LIDOCAINE 1% PF 2 ML VIAL. ONE
[2017-12-10 08:46] LABS: CALCIUM 9.3 mg/dL (8.5-10.1); CREATININE 1.2 mg/dL (0.6-1.0); GFR 44.3; POTASSIUM 3.5 mmol/L (3.5-5.1)
[2017-12-10 08:50] LABS: HEMATOCRIT 39.6 % (36.0-47.0); HEMOGLOBIN 14.1 g/dL (12.0-15.5); RED BLOOD COUNT 3.98 x10^6/uL (3.50-5.40); RED CELL DISTRIBUTION WIDTH 13.1 % (11.5-14.5); WHITE BLOOD COUNT 7.4 x10^3/uL (4.0-11.0)
[2017-12-10 09:03] LABS: PROTHROMBIN TIME PATIENT 12.9 SEC (11.7-14.0)
--- NOTE | 2017-12-10 09:35 | PDOC ---
MODERATE SEDATION ASSESSMENT RISKS/ALTERNATIVES Risks/Alternatives Risks and alternatives of this type of sedation and procedure discussed with: RISK/ALTERNATIVES: Patient H & P ON CHART H & P H & P on chart and reviewed for co-morbid conditions and appropriate labs. H&P ON CHART: Yes STATUS PREG STATUS ASSESSED: N/A MEDS/ALLERGIES REVIEWED Meds/Allergies Reviewed Medications and Allergies including time and route of recently administered narcotics and sedatives. MEDS/ALLERGIES REVIEWED: Yes ASA RATING ASA RATING: II AIRWAY ASSESSMENT Airway Assessment Airway patency, oral function limitations, presence of caps, crowns, dentures, partials, and ability to extend neck assessed. AIRWAY ASSESSMENT: Yes MALLAMPATI SCORE MALLAMPATI SCORE: II PRE-SEDATION ASSESSMENT PRE-SEDATION ASSESSMENT: Yes JARON CHOW MD Dec 10, 2017 09:35
[2017-12-10] MEDS ORDERED: HEPARIN for IV BOLUS 10,000 UNIT/10 ML VIAL. ONE (09:45)
[2017-12-10] MEDS ORDERED: VERAPAMIL 5 MG/2 ML VIAL. ONE (09:45)
[2017-12-10] MEDS ORDERED: MIDAZOLAM HCL/PF 5 MG/5 ML VIAL. ONE (09:45)
[2017-12-10] MEDS ORDERED: NITROGLYCERIN 200 MCG/2 ML SYRINGE FOR CATH/VASC LAB. ONE (09:45)
[2017-12-10] MEDS ORDERED: fentaNYL PF VIAL 100 MCG/2 ML VIAL ONE (09:45)
[2017-12-10] MEDS ORDERED: CONTRAST GIVEN. MC PRN (10:15)
[2017-12-10] MEDS: IODIXANOL 320 MG/ML 100 ML VIAL. IART ONE (10:29)
[2017-12-10] MEDS: NITROGLYCERIN 200 MCG/2 ML SYRINGE FOR CATH/VASC LAB. IART ONE (10:29)
[2017-12-10] MEDS: LIDOCAINE 1% PF 2 ML VIAL. INJ ONE (10:29)
[2017-12-10] MEDS ORDERED: IV 1/2 NORMAL SALINE 1,000 ML IV SCH (10:30)
[2017-12-10] MEDS: MIDAZOLAM HCL/PF 5 MG/5 ML VIAL. IV ONE (10:30)
[2017-12-10] MEDS: VERAPAMIL 5 MG/2 ML VIAL. IART ONE (10:30)
[2017-12-10] MEDS: fentaNYL PF VIAL 100 MCG/2 ML VIAL IV ONE (10:32)
[2017-12-10] MEDS: HEPARIN for IV BOLUS 10,000 UNIT/10 ML VIAL. IV ONE (10:33)
[2017-12-10] MEDS: HEPARIN for IV BOLUS 10,000 UNIT/10 ML VIAL. IART ONE (10:33)
--- NOTE | 2017-12-10 10:51 | CARD ---
MR#: [id number] Date of Study: 12/10/2017 Ordering Physician: JARON JIANG, Referring Physician: JARON JIANG Tech: RT Silke (R) APPROVED REPORT Technologist: RT Silke (R) Nurse: Julia Edgar R.N. Procedure(s) performed: 1. Left heart catheterization, selective coronary angiography and left ventr iculography via right transradial approach 2. Instant wave free ratio (IFR) measurement of right coronary artery stenosis Moderate sedation: 40 MINUTES INDICATION The indication(s) include : Dyspnea on exertion and positive stress test. PROCEDURE NARRATIVE After explaining the risks, benefits and alternative options, informed consent was obtained from ellie ent. Patient was brought to the cardiac Salad Chef and right wrist was prepped and draped in the usual fashion after confirming a positive modified John's test. Arterial access was obtained in the [facility] radial artery and a 6 Luxembourger sheath was inserted. 6 Luxembourger Norris catheter was used to perform marvin ective angiography of the left and right coronary arteries. The same catheter was used to perform lef t ventriculography. Since patient was found to have angiographically borderline significant lesion in volving her right coronary artery, a decision was made to perform physiologic assessment using Instan t wave free ratio (IFR). The stenosis in the midsegment was crossed with [place] Verrata PressureWir e and IFR measurement was made that was found to be insignificant at 1.0. Patient tolerated the proce dure well. Hemostasis was achieved using TR band. There were no immediate complications. The follo wing findings were noted. FINDINGS 1. Hemodynamics: Left ventricular end-diastolic pressure of 7 mmHg. No pullback gradient across the aortic valve. 2. Left ventriculography: Normal left ventricle systolic function with ejection fraction estimated at 65%. No significant mitral regurgitation seen. 3. Coronary angiography: a. The left main coronary artery arose from the left sinus of Valsalva, gave rise to the left anteri or descending and left circumflex arteries and did not show any significant stenosis. b. The left anterior descending artery showed 30% stenosis in the proximal segment and 40-50% stenos is in the midsegment. c. The left circumflex artery did not show any significant stenosis. d. The right coronary artery was a large and dominant vessel arising from the right sinus of Valsalv a that showed 40% stenosis in the midsegment and 50-60% stenosis involving the mid to distal segment which was found to be physiologically not significant based on IFR measurement of 1.0. Conclusion 1. Nonobstructive coronary artery disease 2. Normal left ventricle systolic function with ejection fraction estimated at 65% Recommendations Medical Therapy Signed by : Jaron Jiagn, Electronically Approved : 12/10/2017 10:50:28
[2017-12-10] MEDS: POTASSIUM CHLORIDE 20 MEQ TABLET.ER. PO ONE (11:29)
== END 2017-12-10 13:17 | disposition home or self-care (01) ==
LOC: CCL 08:14
PROVIDERS: ATTEND Internal Medicine Cardiovascular Disease
DX: I25.10 Atherosclerotic heart disease of native coronary artery without angina pectoris (principal); Z88.0 Allergy status to penicillin; Z88.2 Allergy status to sulfonamides; Z91.048 Other nonmedicinal substance allergy status
CPT/HCPCS: 36415; 80048; 85027; 85610; 93458; 93571; 99152; 99153; C1769; C1892; J1644; J2250; J3010; J3490; Q9967

== ENCOUNTER → 2018-10-25 | Outpatient (CLI) | payer MEDICARE, OTHER ==
[2017-12-10 13:10] VITALS: BP 170/70
[~2018-10-25] MED LIST changes: +CYAN-25 PO; -CYAN10005 PO; -GABA-586 PO; +GABA300C18 PO; -HYDR-2758 PO; +HYDR-2761 PO; +HYDR-3164 PO; -HYDR-971 PO; -IODIXANOL 320 MG/ML 100 ML VIAL. ONE; -LIDOCAINE 1% PF 2 ML VIAL. ONE
--- NOTE | 2018-10-25 13:19 | RAD ---
DATE: October 25, 2018 EXAM: MAMMO MELECIO BOND HISTORY: History of left breast cancer treated with lumpectomy and radiation therapy in July 2016. COMPARISON: May 14, 2017. This study was interpreted with the benefit of Computerized Aided Detection (CAD). 2-D digital mammographic views of both breasts were performed in the CC and MLO projections. 3-D digital tomosynthesis images of both breasts were performed in the CC and MLO projections and reviewed on a computer workstation. FINDINGS: Breast Density: SCATTERED The breast parenchyma shows scattered fibroglandular densities. Breast parenchyma level B. Post operative and post radiation changes of the left breast are stable. There are no new dominant suspicious masses, suspicious microcalcifications or new architectural distortion. Nodule of the upper-outer quadrant of the right breast is stable. IMPRESSION: No mammographic indicators for new or recurrent malignancy. BI-RADS CATEGORY: 2 BENIGN FINDING RECOMMENDED FOLLOW-UP: 12M 12 MONTH FOLLOW-UP PQRS compliance statement: Patient information was entered into a reminder system with a target due date October 27, 2019 for the next mammogram. Mammography is a sensitive method for finding small breast cancers, but it does not detect them all and is not a substitute for careful clinical examination. A negative mammogram does not negate a clinically suspicious finding and should not result in delay in biopsying a clinically suspicious abnormality. "Our facility is accredited by the [employer] Mammography Program." The patient's breast density may affect the ability of mammography to detect breast cancer. There are 4 categories of breast density, A, B, C and D. Breast density A means that most of the breast tissue is replaced with adipose tissue and therefore is not dense. Breast density B means that the breast tissue is mildly dense and scattered. Breast density C means that the breast tissue is heterogeneously dense. Breast density D means that the breast tissue is very dense. Breast densities especially C and D may decrease the sensitivity of mammography to detect breast cancer. Therefore, the patient may benefit from 3-D breast mammography (3D breast tomography) as a part of their screening mammogram. Insurance may or may not pay for this additional imaging. The patient's breast density based on today's mammogram is category B.
== END | disposition home or self-care (01) ==
LOC: MAMMO 11:32
PROVIDERS: ATTEND Radiology Radiation Oncology
DX: N63.11 Unspecified lump in the right breast, upper outer quadrant (principal); Z85.3 Personal history of malignant neoplasm of breast
CPT/HCPCS: 77066; G0279; 77062

== ENCOUNTER → 2018-11-30 | Outpatient (CLI) | payer MEDICARE, OTHER ==
[2017-12-10 13:10] VITALS: BP 170/70
--- NOTE | 2018-11-30 11:21 | RAD ---
Examination: Lower Extremity Venous Doppler Ultrasound History: Bilateral lower extremity pain Comparison: None Procedure: Rhodes scale, color flow 2D and spectal waveform analysis images are obtained with and without compression in the area of the common femoral vein, superficial femoral vein - femoral vein junction, main femoral vein (superficial femoral vein) and popliteal vein. Veins of the proximal calf are also imaged. Findings: There is normal duplex flow, color flow and compressibility of all visualized vein segments. No evidence of deep venous thrombus is present. Impression: No evidence of DVT in the bilateral lower extremity venous system. Electronically signed by: Raman Palacio MD (11/30/2018 11:19 AM) [facility]
== END | disposition home or self-care (01) ==
LOC: US 09:36
PROVIDERS: ATTEND Internal Medicine Hematology & Oncology
DX: D05.12 Intraductal carcinoma in situ of left breast (principal); M79.89 Other specified soft tissue disorders; Z88.0 Allergy status to penicillin; Z88.2 Allergy status to sulfonamides; Z88.8 Allergy status to other drugs, medicaments and biological substances; Z91.041 Radiographic dye allergy status
CPT/HCPCS: 93970

== ENCOUNTER → 2019-04-12 | Outpatient (CLI) | payer MEDICARE, OTHER ==
[2017-12-10 13:10] VITALS: BP 170/70
[~2019-04-12] MED LIST changes: -POTA10TA12 PO; +POTASSIUM CHLO10 ME1 PO
--- NOTE | 2019-04-13 11:40 | RAD ---
LUMBAR SPINE WO CONTRAST History: Low back pain. Sciatica. Technique: Multiplanar, multi sequential MR imaging was performed of the lumbar spine. Comparison: None Findings: Grade 1 anterolisthesis L4 on L5 and L5 on S1. Otherwise, normal alignment. Normal vertebral body height. No fracture. Multilevel degenerative end plate changes. No pathologic marrow placing process. Conus terminates at the normal location. No evidence of nerve root clumping. L1-L2: No canal or neuroforaminal narrowing. L2-L3: No canal or neuroforaminal narrowing. L3-L4: Small posterior disc bulge. Mild facet arthropathy. No canal or neuroforaminal narrowing. L4-L5: Anterolisthesis. Moderate facet arthropathy. Disc uncovering. Mild subarticular recess narrowing. No canal narrowing. No neuroforaminal narrowing. L5-S1: Anterolisthesis. Moderate facet arthropathy. No canal or neuroforaminal narrowing. Partially imaged lower thoracic degenerative changes. T10-T11 mild right neuroforaminal narrowing partially imaged. Impression: 1. Mild multilevel lumbar spondylosis. 2. Grade 1 anterolisthesis L4 on L5 and L5 on S1. Electronically signed by: Ashwin Reyes DO (04/13/2019 11:37 AM) [facility]
== END | disposition home or self-care (01) ==
LOC: MRI 12:38
PROVIDERS: ATTEND Internal Medicine
DX: M43.17 Spondylolisthesis, lumbosacral region (principal); M12.88 Other specific arthropathies, not elsewhere classified, other specified site; M47.816 Spondylosis without myelopathy or radiculopathy, lumbar region
CPT/HCPCS: 72148

== ENCOUNTER → 2019-05-16 | Outpatient (CLI) | payer MEDICARE, OTHER ==
[2017-12-10 13:10] VITALS: BP 170/70
[~2019-05-16] MED LIST changes: +IOHEXOL 180 MG/ML 10 ML VIAL. ONE; +POTA10TA PO; +TRAM50TA PO; +methylPREDNISolone ACETATE 40 MG/ML VIAL. ONE; +methylPREDNISolone ACETATE 80 MG/ML VIAL. ONE
--- NOTE | 2019-05-16 20:25 | PAIN ---
DATE OF SERVICE: 05/16/2019 INITIAL CONSULTATION FOR PAIN CLINIC CHIEF COMPLAINT: Low back and bilateral lower extremity pain. HISTORY OF PRESENT ILLNESS: The patient is a 74-year-old female who presents with history of pain for about 3 weeks in the low back and right greater than left lower extremity were present bilaterally. 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 She step-down the van and hence took a stumble and landed hard on her foot with jarring of her back and hips. The patient reports she has had pain ever since then radiating from across the low back into the bilateral lower extremities, mostly in the lateral thighs, anterior thighs and medial lower legs, right equal to left. The patient reports her leg is going numb. She has increased fatigability with standing, and walking, much better with sitting or lying down, but awakens her from sleep about 2-3 times a night. The patient reports it does not affect her bowel or bladder control, but does affect her ability to walk using a walker or cane and has a walker with her today. The patient reports she has not had any current therapies, physical therapies, chiropractic treatments or other. She has been doing some stretching on her own, that is about all. The patient describes the pain as constant, aching, dull, sharp, shooting with some numbness in the legs as well, aching and cramping along the low back. The patient rates her pain and her disability rating as 0-10, 10 being the worst at night in all categories, family, home responsibilities, recreation, social activity, sexual behavior, occupation, self-care and life support activities. She did have an MRI scan of the lumbar spine showing L3-L4, small posterior disk bulge, L4-L5 shows anterolisthesis and this can cover with moderate facet arthropathy, mild subarticular recess narrowing. L5-S1 shows some moderate facet arthropathy and anterolisthesis as well, but without foraminal narrowing. The patient reports significant fatigability, especially the right lower extremity with walking or standing, again better with sitting or lying down, but again awaken her from sleep. PAST MEDICAL HISTORY: Significant for hypertension, hypothyroidism, left breast cancer, endometrial cancer, status post radiation treatment, hyperlipidemia, incontinence, depression, gout, arthritis. PREVIOUS SURGERY: Include left breast lumpectomy, cholecystectomy, tonsillectomy, bilateral cataract extractions, and hysterectomy. CURRENT MEDICATIONS: Include allopurinol, cyclobenzaprine, gabapentin, vitamins, potassium, levothyroxine, [place], pravastatin, tramadol, tamoxifen, ProAir inhaler, and triamterene. ALLERGIES: THE PATIENT IS ALLERGIC TO SULFA AND PENICILLIN. FAMILY HISTORY: Significant for no major medical problems or conditions that she lists. SOCIAL HISTORY: The patient does not drink alcohol, does not smoke, does not use any illegal, illicit or recreational drugs. The patient is , lives with her spouse, lives locally in [place], [place] and is currently retired from working by her report. REVIEW OF SYSTEMS: The patient's review of systems is positive for those items mentioned in history of present illness. All systems reviewed and otherwise negative. It is complete, full and well documented on the patient's chart. PHYSICAL EXAMINATION: VITAL SIGNS: The patient's blood pressure is 145/77, pulse 77, respirations 20, temperature 98.1 degrees Fahrenheit, height is 4 feet 11 inches, weight is 191 pounds. GENERAL: The patient is awake, alert, oriented, appropriate, very pleasant demeanor. HEENT: Shows normocephalic, atraumatic. Extraocular movements are intact and symmetrical. Oral cavity: Mucous membranes moist and pink. Dentition is intact. NECK: Shows anterior throat supple. CHEST: Shows normal on inspection. Breath sounds clear to auscultation bilaterally. HEART: Shows S1, S2 clear. No murmurs auscultated. ABDOMEN: Soft, nontender, nondistended. No palpable organomegaly is noted. No rebound or guarding demonstrated. BACK: Shows spine grossly in the midline. Normal appearing thoracic kyphosis, some minor flattening of lumbar lordotic curvature. Lumbar paraspinous muscle shows symmetrical on inspection, with palpation shows some moderate tenderness diffusely throughout the upper, middle and lower distribution of paraspinous muscles without significant radiation or asymmetry. No trigger points. The patient shows no tenderness over the sacrum or sacroiliac regions or the spinous processes. Shows good rotational motion of lumbar spine, both laterally greater than 10 degrees right and left as well as extension greater than 10 degrees, forward flexion 45 degrees without significant pain reported. EXTREMITIES: The patient's lower extremities show deep tendon reflexes 1+ patellar and tendons are equal. Motor exam is approximately 4 on a scale of 5 with right dorsiflexion, extension and 5/5 on the right. This is true with quadriceps and hamstring flexion 4/5 on the right and 5/5 on the left as well. Peripheral pulses are 1+ posterior tibial. No peripheral edema is noted bilaterally. Straight leg raise noted to be negative for reproduction of radicular symptoms bilaterally. Gaenslen's and Ethan's maneuvers are negative bilaterally as well. The patient is able to stand, has difficulty rising from a seated position with significant pain with all the weight placed on her right lower extremity and across the low back, although she is able to ambulate, has a very shuffling gait and using a walker once again with her today to ambulate. SKIN: Shows warm and dry, good turgor. No edema. No sores, rashes or bruising throughout. IMPRESSION: 1. This is a 74-year-old female with approximately 3-week history of increasing pain, low back, bilateral lower extremities. 2. MRI scan of lumbar spine as noted. 3. Hypertension. 4. Arthritis. PLAN: Options were discussed with the patient including conservative medical managements, physical therapies and interventional techniques. She would like to pursue interventional techniques. We discussed a lumbar epidural steroid injection using description as well as anatomical models to describe the procedure. Risks were then discussed including, but not limited to bleeding, infection, possibility of epidural hematoma, subsequent neurological compromise, dural puncture, headaches, spinal cord and/or nerve damage, side effects of steroid medication and poor results regarding pain control. The patient understands and wished to proceed. The patient will return to clinic in approximately 2 weeks for followup. She was counseled on return appointment, activity level and side effects to be aware of. DIAGNOSES: Lumbar radiculopathy with lumbar degenerative disk disease. PROCEDURE: Lumbar epidural steroid injection, translaminar approach at the L4-L5 level using C-arm fluoroscopic guidance under sterile prep and drape using local anesthetic. MEDICATION INJECTED: A total of 120 mg Depo-Medrol plus 10 mL of preservative-free normal saline and 2 mL of contrast. CONDITION AT DISCHARGE: Stable. The patient tolerated procedure well, had no complications. TONY CROWELL MD DR: ARMANDO/federica JOB#: [id number] / [id number] WICHO Burkett MD
== END ==
LOC: PNCL 10:55
PROVIDERS: ATTEND Anesthesiology
DX: M51.16 Intervertebral disc disorders with radiculopathy, lumbar region (principal); I10 Essential (primary) hypertension; E03.9 Hypothyroidism, unspecified; E78.5 Hyperlipidemia, unspecified; F32.9 Major depressive disorder, single episode, unspecified; M10.9 Gout, unspecified; Z85.3 Personal history of malignant neoplasm of breast; Z85.42 Personal history of malignant neoplasm of other parts of uterus; Z87.39 Personal history of other diseases of the musculoskeletal system and connective tissue; Z90.49 Acquired absence of other specified parts of digestive tract; Z90.710 Acquired absence of both cervix and uterus; Z98.42 Cataract extraction status, left eye; Z98.41 Cataract extraction status, right eye; Z88.1 Allergy status to other antibiotic agents; Z88.0 Allergy status to penicillin; Z96.1 Presence of intraocular lens
CPT/HCPCS: 62323; J1030; J1040; Q9965

== ENCOUNTER → 2019-05-31 | Outpatient (CLI) | payer MEDICARE, OTHER ==
[2017-12-10 13:10] VITALS: BP 170/70
--- NOTE | 2019-06-01 01:19 | PAIN ---
DATE OF SERVICE: 05/31/2019 PROGRESS NOTE FOR PAIN CLINIC DIAGNOSES: Lumbar radiculopathy with lumbar degenerative disk disease. HISTORY OF PRESENT ILLNESS: The patient is a 74-year-old female who returns for followup status post lumbar epidural steroid injection x 1. The patient reports about 75% improvement in the low back and the legs. The pain has been returning now to about 50% improvement overall. The patient reports the first week and a half, she was doing very well with increased activity, distance walking, doing work activities and household activities. The patient reports it is beginning to awaken her from sleep again, but only rarely. The patient reports no new motor or sensory deficits, no new bowel or bladder incontinence. Still pain in the low back, bilateral lower extremities, posterior lateral thighs, anterior medial thighs and medial lower legs. The patient reports it is a 7 on a scale of 10 at all times at its worst, average and least and is at 7 today. The patient reports it is radiating, shooting, aching and dull across the low back. The patient reports no new motor or sensory deficits, no new bowel or bladder incontinence or other complaints. PHYSICAL EXAMINATION: VITAL SIGNS: The patient's blood pressure is 129/74, pulse 98, respirations 20, temperature 97.7 degrees Fahrenheit and weight is 204 pounds. GENERAL: The patient is awake, alert, oriented, appropriate, very pleasant demeanor. HEENT: Shows normocephalic, atraumatic. Extraocular movements are intact and symmetrical. Oral cavity, mucous membranes moist and pink. Dentition is intact. NECK: Shows anterior throat supple without palpable lymphadenopathy noted. Swallow reflex symmetrical. CHEST: Shows normal on inspection. Breath sounds are clear to auscultation bilaterally. HEART: Shows S1, S2 clear. No murmurs auscultated. ABDOMEN: Soft, nontender, nondistended. No palpable organomegaly is noted. No rebound or guarding demonstrated. BACK: Shows spine grossly in the midline, slight exaggerated thoracic kyphosis and minor flattening of lumbar lordotic curvature. Lumbar paraspinous muscle shows symmetrical on inspection, on palpation shows some moderate tenderness diffusely bilaterally going diffusely without significant radiation. The patient's back shows good rotational motion both laterally as well as extension and flexion without significant difficulty. EXTREMITIES: The patient's lower extremities showed deep tendon reflexes 1+ patella and tendo calcaneus tendons are equal. Motor exam is approximately 4 on a scale of 5 on the right, 5/5 on the left with dorsiflexion and extension. Peripheral pulses are 1+ in posterior tibia. No peripheral edema is noted bilaterally. Options were discussed with the patient. The patient's old chart was reviewed as her current medication regimen updated. Current review of systems updated today as well. We will proceed with a second in the series of lumbar epidural steroid injection today with fluoroscopic guidance. Risks were again discussed including, but not limited to bleeding, infection, possibility of epidural hematoma, subsequent neurological compromise, dural puncture, headaches, spinal cord and/or nerve damage, side effects of steroid medication and poor results regarding pain control. The patient understands and wished to proceed. The patient will return to clinic in approximately 2 weeks for followup. She was counseled on return appointment, activity level and side effects to be aware of. DIAGNOSIS: Lumbar radiculopathy with lumbar degenerative disk disease. PROCEDURE: Lumbar epidural steroid injection, translaminar approach at L4-L5 level using C-arm fluoroscopic guidance under sterile prep and drape using local anesthetic. MEDICATION INJECTED: A total of 120 mg Depo-Medrol plus 10 mL of preservative-free normal saline and 2 mL of contrast. CONDITION AT DISCHARGE: Stable. The patient tolerated the procedure well, had no complications. TONY CROWELL MD DR: ARMANDO/federica JOB#: [id number] / [id number]
== END ==
LOC: PNCL 10:03
PROVIDERS: ATTEND Anesthesiology
DX: M51.16 Intervertebral disc disorders with radiculopathy, lumbar region (principal)
CPT/HCPCS: 62323; J1030; J1040; Q9965

== ENCOUNTER → 2019-09-13 | Outpatient (CLI) | payer MEDICARE, OTHER ==
[2017-12-10 13:10] VITALS: BP 170/70
[~2019-09-13] MED LIST changes: -IOHEXOL 180 MG/ML 10 ML VIAL. ONE; -LEVO112T4 PO; +LEVO112T49 PO; -methylPREDNISolone ACETATE 40 MG/ML VIAL. ONE; -methylPREDNISolone ACETATE 80 MG/ML VIAL. ONE
--- NOTE | 2019-09-13 11:36 | RAD ---
EXAMINATION: Magnetic resonance imaging (MRI) of the brain and brainstem without contrast 09/13/2019 10:30 AM HISTORY: Migraines for 3 months TECHNIQUE: Multiplanar multi-weighted MRI of the brain and brainstem was performed without intravenous contrast using the general brain protocol. COMPARISON: None available. FINDINGS: The scalp and calvarium are normal. The superior sagittal sinus demonstrates normal venous flow. The corpus callosum is normal in shape and signal intensity. The posterior fossa is unremarkable. The pituitary and sella are normal. The brainstem and craniocervical junction are unremarkable.. There are T2/FLAIR signal hyperintense foci in the periventricular and subcortical white matter with areas of confluence most suggestive of moderate chronic small vessel ischemic changes. Diffusion weighted images reveal no hyperintensities to suggest acute cerebral infarction. Punctate focus of susceptibility artifact is identified in the right frontal lobe (series 9, image 17). This may represent an area of microhemorrhage or tiny cavernoma. Ventricles, sulci and basal cisterns are prominent compatible with mild generalized cerebral volume loss Mild mucosal thickening of the left maxillary sinus. The visualized portions of the mastoids are unremarkable. The orbits appear normal with exception of bilateral lens replacement. Normal flow voids are demonstrated in the carotid arteries and basilar artery. IMPRESSION: 1. No evidence for acute or subacute ischemia. 2. Mild generalized cerebral volume loss. There are T2/FLAIR signal hyperintense foci in the periventricular and subcortical white matter with areas of confluence most suggestive of moderate chronic small vessel ischemic changes. 3. Punctate focus of susceptibility artifact identified in the right periventricular white matter which may represent an area of microhemorrhage versus tiny cavernoma. Electronically signed by: Meena Garvin MD (09/13/2019 11:33 AM) [facility]
== END | disposition home or self-care (01) ==
LOC: MRI 11:27
PROVIDERS: ATTEND Internal Medicine
DX: G43.009 Migraine without aura, not intractable, without status migrainosus (principal)
CPT/HCPCS: 70551

== ENCOUNTER → 2019-11-08 | Outpatient (CLI) | payer MEDICARE, OTHER ==
[2017-12-10 13:10] VITALS: BP 170/70
--- NOTE | 2019-11-08 11:31 | CARD ---
MR#: [id number] Date of Study: 11/08/2019 Ordering Physician: JARON CHOW, Referring Physician: JARON CHOW, Tech: Patricia Fall APPROVED REPORT EXAM: Two-dimensional and M-mode echocardiogram with Doppler and color Doppler. Other Information Quality : AverageHR: 85bpm Technically limited study due to INDICATION Hypertension/HCVD RISK FACTORS Hyperlipidemia 2D DIMENSIONS RVDd2.7 (2.9-3.5cm)Left Atrium(2D)3.6 (1.6-4.0cm) IVSd1.2 (0.7-1.1cm)Aortic Root(2D)3.0 (2.0-3.7cm) LVDd4.1 (3.9-5.9cm)LVOT Diameter2.0 (1.8-2.4cm) PWd1.2 (0.7-1.1cm)LVDs3.2 (2.5-4.0cm) FS (%) 23.2 %SV35.4 ml LVEF(%)46.9 (>50%) Aortic Valve AoV Peak Jonatan.175.7cm/sAoV VTI33.0cm AO Peak GR.12.3mmHgLVOT Peak Jonatan.128.9cm/s LVOT VTI 25.50cmAO Mean GR.8mmHg AI P 1/2 [id number] Mitral Valve MV E Hquychea03.6cm/sMV DECEL PSCT202gc MV A Aaetftog664.8cm/sMV E Mean Gr.5mmHg MV WVM13gvO/A Ratio0.6 MVA (PHT)3.33cm2 TDI E/Lateral E'11.8E/Medial E'15.9 Pulmonary Valve PV Peak Zamygvgn56.9cm/sPV Peak Grad.3mmHg Tricuspid Valve TR P. Obxmpvwe889gq/sRAP JJHSGATV9svPt TR Peak Gr.20lxIbQLKP59spUv Pulmonary Vein S1 Qythimgv92.9cm/sD2 Jescnnlk82.5cm/s PVa [id number] LEFT VENTRICLE The left ventricle is normal size. There is mild concentric left ventricular hypertrophy. The left ve ntricular systolic function is normal and the ejection fraction is within normal range. The Ejection Fraction is 55%. There is normal LV segmental wall motion. Transmitral Doppler flow pattern is Grade I-abnormal relaxation pattern. RIGHT VENTRICLE The right ventricle is normal size. There is normal right ventricular wall thickness. The right ventr icular systolic function is normal. ATRIA The left atrium size is normal. The right atrium size is normal. The interatrial septum is intact wit h no evidence for an atrial septal defect or patent foramen ovale as noted on 2-D or Doppler imaging. AORTIC VALVE The aortic valve is heavily calcified with restricted motion. 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 Li liz mild aortic stenosis with MG of 10 mm Hg, and moderate AI. MITRAL VALVE The mitral valve is mildly thickened. There is no evidence of mitral valve prolapse. Mitral valve davi n gradient of 4.6 mmHg. Doppler and Color-flow revealed trace mitral regurgitation. TRICUSPID VALVE The tricuspid valve is normal in structure and function. Doppler and Color Flow revealed trace tricus pid regurgitation with an estimated PAP of 21 mmHg. There is no tricuspid valve stenosis. PULMONIC VALVE The pulmonic valve is not well visualized. Doppler and Color Flow revealed no pulmonic valvular regur gitation. There is no pulmonic valvular stenosis. GREAT VESSELS The aortic root is normal in size. The ascending aorta is Mildly dilated at 3.7 cm. The IVC was not v isualized. PERICARDIAL EFFUSION There is no evidence of significant pericardial effusion. Critical Notification Critical Value: No <Conclusion> The left ventricular systolic function is normal and the ejection fraction is within normal range. Th e Ejection Fraction is 55%. There is normal LV segmental wall motion. 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 Likely mild aortic stenosis with MG of 10 mm Hg, and moderate AI . The ascending aorta is Mildly dilated at 3.7 cm. Technically difficult study Signed by : Ugo Stokes, Electronically Approved : 11/08/2019 11:30:20
== END | disposition home or self-care (01) ==
LOC: ECHO 08:16
PROVIDERS: ATTEND Internal Medicine Cardiovascular Disease
DX: I35.1 Nonrheumatic aortic (valve) insufficiency (principal); I11.9 Hypertensive heart disease without heart failure
CPT/HCPCS: 93306